=== PATIENT | male | born 1965 | race Two or more races ===

== ENCOUNTER 2019-04-16 14:47 | Inpatient (IN) | payer MEDICARE ==
[~2019-04-16] VITALS: Ht 162.6 cm; Wt 74.1 kg
--- NOTE | 2019-04-16 15:30 | NUR ---
PT ARRIVED TO FLOOR VIA WHEELCHAIR WITH REGISTRATION STAFF AND FAMILY. VSS AND WNL. PT SON HERE TO HELP TRANSLATE SIMPLE QUESTIONS. PT UNDERSTANDS VERY LITTLE INDONESIAN. CALL LIGHT WITHIN REACH. WILL CONT TO FOLLOW POC
[2019-04-16 15:33] VITALS: BP 127/67; BMI 27.8
[2019-04-16] MEDS ORDERED: LIPITOR40 MG PO (15:48)
[2019-04-16] MEDS ORDERED: HYDROXYCHLOROQUINE PO (15:50)
[2019-04-16] MEDS ORDERED: COREG12.5 MG PO (15:51)
[2019-04-16] MEDS ORDERED: METHOTREXATE2.5 MG PO (15:52)
[2019-04-16] MEDS ORDERED: CARDURA4 MG PO (15:53)
[2019-04-16] MEDS ORDERED: LASIX80 MG PO (15:53)
[2019-04-16] MEDS ORDERED: ZOFRAN4 MG PO (15:54)
[2019-04-16] MEDS ORDERED: NORVASC5 MG PO (15:54)
[2019-04-16] MEDS ORDERED: BAYER CHEWABLE81 MG PO (15:55)
[2019-04-16] MEDS ORDERED: FOLIC ACID1 MG PO (15:55)
[2019-04-16] MEDS ORDERED: LANTUS SOL100 UNIT/1 SC (15:56)
[2019-04-16] MEDS ORDERED: PROCRIT/EP20000 UNIT SC (15:58)
--- NOTE | 2019-04-16 16:00 | NUR ---
20G PIV INSERTED X1 ATTEMPT TO RIGHT AC. PT TOLERATED WELL.
--- NOTE | 2019-04-16 17:28 | NUR ---
ASSISTED PT WITH PD. PT TOLERATED WELL.
--- NOTE | 2019-04-16 18:29 | NUR ---
PT RESTING IN BED, FAMILY AT BEDSIDE. CALL LIGHT WITHIN REACH. WILL CONT TO FOLLOW POC
[2019-04-16 20:16] VITALS: BP 127/67
--- NOTE | 2019-04-16 21:00 | NUR ---
EVENING ROUNDS COMPLETED. VSS, AAOX3, NO S/S OF RESP DISTRESS. PT ABLE TO UNDERSTAND SIMPLE SPOKEN HEBREW, STATES HE DOES NOT NEED ANY MANAGER TRANSIT. SISTER @ BEDSIDE. STARTED PT PERITONEAL DIALYSIS. PT C/O OF ABD BEING FULL A RESULT OF DIALYSIS FLUID, ALTHOUGH C/O OF FEELING HUNGRY. PT DENIES ANY PAIN AT THIS TIME. WILL CPOC. CL WITHIN REACH, BED IN LOW, SR UP X2.
--- NOTE | 2019-04-16 21:15 | NUR ---
TURKEY SANDWICH PROVIDED FOR PT. PT VOICED THANKS. PT ALSO STATES HE FEELS VOLUME PD FLUID IS TOO MUCH BECAUSE IT MAKE HIS STOMACH HURTS AND MAKES HIM UNCOMFORTABLE. WILL RELATE THIS FINDINGS TO INCOMING NURSE AND PROVIDER.
[2019-04-16 23:13] VITALS: BP 128/57
[2019-04-17 06:03] LABS: BASOPHILS 0 % (0-2); EOSINOPHILS 0.3 % (0-7); HEMATOCRIT 26.9 % (42.0-54.0); HEMOGLOBIN 9.2 g/dL (13.5-17.5); IMMATURE GRANULOCYTES 0.8 % (0-5); MCH 32.9 pg (26.0-34.0); MCHC 34.2 g/dL (31.0-37.0); MCV 96.1 fL (80.0-100.0); MEAN PLATELET VOLUME 10.6 fL (7.4-10.4); MONOCYTES 5.7 % (2-11); NEUTROPHILS 86.2 % (40-80); PLATELET COUNT 98 10x3/uL (130-400); WBC 10.1 10x3/uL (4.8-10.8)
[2019-04-17 06:32] LABS: ANION GAP 10.9 mmol/L (8-16); CALCIUM 7.2 mg/dL (8.5-10.1); CARBON DIOXIDE 26.1 mmol/L (21.0-32.0)
--- NOTE | 2019-04-17 07:42 | NUR ---
SPOKE WITH EDGARD ORR ABOUT PD 2000ML BEING TOO MUCH ON PT. SHE STATES WE CAN DO 1500ML BUT THERE WILL BE ONE MORE EXCHANGE. I VERBALIZED UNDERSTANDING.
[2019-04-17 07:44] LABS: PLATELET ESTIMATE DECREASED
[2019-04-17 08:00] VITALS: BP 120/52
--- NOTE | 2019-04-17 09:35 | NUR ---
ONLY DRAINED 100ML. SPOKE WITH EDGARD ORR AND SHE STATES TO NOT FILL PT. LET HIM REST AND THEN DRAIN AND FILL AT 1100. SHE ALSO STATES TO GET AN ABDOMEN XR AND TO ORDER TYLENOL 650MG Q4HP. I VERBALIZED UNDERSTANDING.
--- NOTE | 2019-04-17 10:00 | NUR ---
PT MOVED AROUND MORE AND ENEDED UP GETTING OUT 1100ML INSSTEAD OF JUST 100ML. NOTIFIED EDGARD ORR. SHE VERBALIZED UNDERSTANDING.
[2019-04-17 12:00] VITALS: BP 106/45
[2019-04-17 12:59] VITALS: Ht 162.6 cm; Wt 74.1 kg
--- NOTE | 2019-04-17 13:57 | NUR ---
PT C/O CONSTIPATION AND ABDOMINAL XR SHOWED CONSTIPATION. CALLED AND SPOKE WITH EDGARD ORR AND SHE STATES TO ORDER ONE TIME DOSE OF LACTULOSE.
[2019-04-17 16:11] VITALS: BP 103/46
--- NOTE | 2019-04-17 19:38 | NUR ---
REPORT RECIEVED AND ROUNDING COMPLETE. PATIENT SITTING UP IN CHAIR. AT BED SIDE. PATIENT STATES THAT HE IS TOO FULL AND REQUESTED TO ONLY HAVE 500 FILL IN HIS PD TONIGHT. CALLED EDGARD ORR AND SHE SAID 1000. INFORMED PATIENT AND HIS AND THEY ARE OKAY WITH TRYING 1,000 TONIGHT. PATIENT HAS A RIGHT HAND PIV THAT IS SALINE LOCKED, NO S/SX OF INFILTRATION OR INFECTION. PATIENT IS A LEFT ARM RESERVE, SIGNS ARE POSTED. PATIENT STATES HE HAS NO NEEDS AT THIS TIME. CALL LIGHT WITHIN REACH.
[2019-04-17 20:04] VITALS: BP 127/59
[2019-04-17 23:23] VITALS: BP 113/59
[2019-04-18 04:00] VITALS: BP 118/70
[2019-04-18 06:16] LABS: CALCIUM 7.8 mg/dL (8.5-10.1); CARBON DIOXIDE 28.1 mmol/L (21.0-32.0); CREATININE - SERUM 5.5 mg/dL (0.6-1.3); POTASSIUM - SERUM 4.1 mmol/L (3.5-5.1)
[2019-04-18 06:49] LABS: BASOPHILS 0.1 % (0-2); EOSINOPHILS 0 % (0-7); HEMATOCRIT 26.6 % (42.0-54.0); HEMOGLOBIN 9.4 g/dL (13.5-17.5); IMMATURE GRANULOCYTES 1.2 % (0-5); LYMPHOCYTES 10.6 % (15-50); MCH 33.6 pg (26.0-34.0); MCHC 35.3 g/dL (31.0-37.0); MEAN PLATELET VOLUME 11.9 fL (7.4-10.4); MONOCYTES 4.7 % (2-11); NEUTROPHILS 83.4 % (40-80); PLATELET COUNT 98 10x3/uL (130-400); WBC 10.8 10x3/uL (4.8-10.8)
[2019-04-18 08:00] VITALS: BP 100/58
--- NOTE | 2019-04-18 11:08 | NUR ---
INITIATE PD TREATMENT. HEPARIN ADDED TO PD FLUID ORDERED. FSBS 165. REFUSE INSULIN COVERAGE. DENIES ANY NEEDS AT THIS TIME. CONTINUE PLAN OF CARE AND SAFETY PRECAUTIONS.
[2019-04-18 12:00] VITALS: BP 122/63
[2019-04-18 16:00] VITALS: BP 130/58
--- NOTE | 2019-04-18 17:42 | NUR ---
ALERT AND ORIENTED X4. SITTING UP IN BED. FAMILY AT BEDSIDE. DENIES ANY NEEDS AT THIS TIME. CONTINUE PLAN OF CARE AND SAFETY PRECAUTIONS.
--- NOTE | 2019-04-18 19:33 | NUR ---
PT SITTING UP IN BED ALERT AND ORIENTED X4. RR EVEN AND UNLABORED. AND FAMILY AT BEDSIDE. WILL CONTINUE TO MONITOR.
[2019-04-18 20:23] VITALS: BP 120/54
--- NOTE | 2019-04-18 21:30 | NUR ---
PT OUTPUT FOR PD DIALYSIS IS 1,000ML INPUT-1,000ML. 1,000UNITS OF HEPARIN INJECTED INTO 1500ML BAG. STERILE TECHNIQUE USED PD CATH CAP REPLACED. NO S/S OF DISTRESS AT THIS TIME. AT BEDSIDE. BED LOW CALL LIGHT WITHIN REACH WILL CONTINUE TO MONITOR.
[2019-04-19 00:11] VITALS: BP 120/44
--- NOTE | 2019-04-19 00:48 | NUR ---
I have reviewed this patient and I concur with the Shift Assessment completed by the Licensed Practical Nurse today this shift.
--- NOTE | 2019-04-19 03:19 | NUR ---
PT RESTING IN BED WITH EYES CLOSED. RR EVEN AND UNLABORED. NO S/S OF DISTRESS AT THIS TIME. BED LOW CALL LIGHT WITHIN REACH. WILL CONTINUE TO MONTITOR.
[2019-04-19 04:24] VITALS: BP 108/42
--- NOTE | 2019-04-19 07:43 | NUR ---
RECIEVED REPORT. ALERT AND ORIENTED X4. RESTING IN BED. SPOUSE AT BEDSIDE. DENIES ANY NEEDS AT THIS TIME. CONTINUE PLAN OF CARE AND SAFETY PRECAUTIONS.
[2019-04-19 07:48] LABS: CALCIUM 7.7 mg/dL (8.5-10.1); CARBON DIOXIDE 27.8 mmol/L (21.0-32.0); CREATININE - SERUM 5.7 mg/dL (0.6-1.3); POTASSIUM - SERUM 3.8 mmol/L (3.5-5.1)
[2019-04-19 07:53] VITALS: BP 123/61
[2019-04-19 07:58] LABS: BASOPHILS 0 % (0-2); HEMATOCRIT 28.5 % (42.0-54.0); HEMOGLOBIN 9.9 g/dL (13.5-17.5); IMMATURE GRANULOCYTES 0.6 % (0-5); LYMPHOCYTES 7.6 % (15-50); MCH 33.1 pg (26.0-34.0); MCHC 34.7 g/dL (31.0-37.0); MCV 95.3 fL (80.0-100.0); MEAN PLATELET VOLUME 12.1 fL (7.4-10.4); MONOCYTES 2.2 % (2-11); NEUTROPHILS 88.6 % (40-80); PLATELET COUNT 99 10x3/uL (130-400); RBC 2.99 10x6/uL (4.20-6.10)
[2019-04-19 09:52] LABS: PLATELET ESTIMATE DECREASED
[2019-04-19 09:55] LABS: ANISOCYTOSIS OCC; ROULEAUX OCC
--- NOTE | 2019-04-19 10:09 | NUR ---
ALERT AND ORIENTED X4. AMBULATE TO STANDING SCALE FOR ACCURATE WEIGHT. STANDING SCALE 163lbs. DOCUMENT ACCURATE WEIGHT. SPOUSE AT BEDSIDE. DENIES ANY NEEDS AT THIS TIME. DENIES PAIN OR SOB. CONTINUE PLAN OF CARE AND SAFETY PRECAUTIONS.
[2019-04-19 11:03] VITALS: BP 118/56
--- NOTE | 2019-04-19 11:49 | NUR ---
ALERT AND ORIENTED X4. SITTING UP IN BED. UNABLE TO INITIATE PD TREATMENT DUE TO OUT OF CLAMPS. NOTIFY CENTRAL SUPPLY FOR MORE PD CLAMPS. CURRENTLY CENTRAL SUPPLY OUT OF CLAMPS. NOTIFY KIRBY FINN.
--- NOTE | 2019-04-19 13:12 | MORECARE ---
CASE MANAGEMENT DISCHARGE SUMMARY PATIENT: DAMIAN MILLER UNIT: [id number] ADM DATE: 04/16/19 AGE: 53 : 67 SEX: M ROOM/BED: D.9744 AUTHOR: ERI,DOC PHYSICIAN: REFERRING PHYSICIAN: JU MCRAE MD DATE OF SERVICE: 04/19/19 Discharge Plan Patient Name: DAMIAN MILLER Facility: [facility]:[place] : 1965 Planned Disposition: Home Anticipated Discharge Date: 04/20/19 Discharge Date: Expected LOS: 4 Initial Reviewer: [id number] Initial Review Date: 04/20/2019 Generated: 04/19/19 2:12 pm Comments DCP- Discharge Planning Updated by [email or web address]: Ángel Parry on 04/19/19 12:[address] Patient Name: DAMIAN MILLER Admission Status: Urgent Accout number: [id number] Admission Date: 04-16-2019 : 1965 Admission Diagnosis: Attending: JU MCRAE Current LOS: 3 Anticipated DC Date: 04-20-2019 Planned Disposition: Home Primary Insurance: MEDICARE A & B Discharge Planning Comments: CM RECEIVED ORDER REGARDING POSSIBLE NEED OF HOME IV ANTIBIOTICS. CM REVIEWED CHART WHICH INDCATES PLANS FOR DISCHARGE TOMORROW WITH CONVERSION TO PO ANTIBIOTICS. CM MET WITH PT AND SPOUSE IN ROOM TO DISCUSS DISCHARGE PLANNING AND NEEDS. DAMIAN MILLER provided verbal consent to discuss current and ongoing needs with/in the presence of: SPOUSE, LESTER. PT REPORTS LIVING AT HOME INDEPENDENTLY WITH HIS . PT HAS HOME PERITONEAL DIALYSIS EQUIPMENT AND SUPPLIES FROM [employer] IN [place]. PT HAS NO OUTSIDE SERVICES ASSISTING IN THE HOME. CM DISCUSSED AVAILABILITY OF HOME HEALTH, REHAB SERVICES AND MEDICAL EQUIPMENT. PT DENIES DISCHARGE NEEDS, REPORTS HIS WILL PICK HIM UP FOR DISCHARGE HOME. IMPORTANT MESSAGE FROM MEDICARE PROVIDED AND EXPLAINED (PRINTED IN ROMANIAN PT READS ROMANIAN). PT PLANS TO DISCHARGE HOME WITH SPOUSE, HAS NOT ANTICIPATED NEEDS. FAMILY TO TRANSPORT HOME. CM TO FOLLOW AND ASSIST IF NEEDED. Rock Climbing Team Member: Ángel Parry DCPIA - Discharge Planning Initial Assessment Updated by [id number]: Ángel Parry on 04/19/19 1:07 pm * Is the patient Alert and Oriented? Yes * How many steps to enter\exit or inside your home? NONE * PCP [facility] [place] * Pharmacy [facility] IN [place] * Preadmission Environment Home with Family * ADLs Independent * Equipment Other * Other Equipment HOME PERITONEAL DIALYSIS EQUIPMENT * List name and contact numbers for known caregivers / representatives who currently or will assist patient after discharge: LESTER MILLER, SPOUSE, * Verbal permission to speak to the caregivers and representatives has been obtained from the patient. Yes * Community resources currently utilized Other * Please name any agencies selected above. HOME DIALYSIS SUPPLIES FROM [employer] IN [place]; PD NIGHTLY FOR 8 HOURS. * Additional services required to return to the preadmission environment? No * Can the patient safely return to the preadmission environment? Yes * Has this patient been hospitalized within the prior 30 days at any hospital? No Coverage Notice Reviewer: [id number] Larry Parry Notice Issued Date-Time: 04/19/2019 13:00 Notice Type: IM Discharge Notice Notice Delivered To: Patient Relationship to Patient: Interlocking Pavement Installer Name: Delivery Method: HAND - Hand Delivered Stephanie Days: Prior Verbal Notification: Recipient Understood Notice: Yes Recipient Signature: Yes Med Rec Note Co-signed by Attending: Coverage Notice Comment: Patient Name: DAMIAN MILLER Page [phone] at 1312 All edits/amendments must be made on the electronic document DICTATION DATE: 04/19/19 1312 MH TEACHER: MILAGROS 04/19/19 1312 RPT#: [id number] DC DATE: STATUS: ADM IN [facility] [address] [place] [address] END OF REPORT
--- NOTE | 2019-04-19 14:04 | NUR ---
CLAMPS FOR PD OBTAINED. INITIATE PD.
[2019-04-19 15:37] VITALS: BP 109/60
--- NOTE | 2019-04-19 17:04 | NUR ---
ALERT AND ORIENTED X4. SITTING UP IN CHAIR. INITIATE PD TREATMENT ORDERED. SPOUSE AT BEDSIDE. DENIES ANY NEEDS AT THIS TIME. CONTINUE PLAN OF CARE AND SAFETY PRECAUTIONS.
--- NOTE | 2019-04-19 19:07 | NUR ---
AWAKE AND UP IN CHAIR SKIN WARM AND DRY PT BREATHING SHALLOW CAN NOT ASCULATE LUNGS WELL DENIES NEEDS AT THJIS TIME
[2019-04-19 20:00] VITALS: BP 112/42
[2019-04-20] VITALS: BP 105/57
--- NOTE | 2019-04-20 04:50 | NUR ---
I have reviewed this patient and I concur with the Shift Assessment completed by the Licensed Practical Nurse today this shift.
[2019-04-20 05:48] LABS: BASOPHILS 0.1 % (0-2); EOSINOPHILS 0 % (0-7); HEMATOCRIT 27.7 % (42.0-54.0); HEMOGLOBIN 9.5 g/dL (13.5-17.5); IMMATURE GRANULOCYTES 0.4 % (0-5); LYMPHOCYTES 8.2 % (15-50); MCH 33.3 pg (26.0-34.0); MCHC 34.3 g/dL (31.0-37.0); MCV 97.2 fL (80.0-100.0); MEAN PLATELET VOLUME 11.3 fL (7.4-10.4); MONOCYTES 5.3 % (2-11); PLATELET COUNT 105 10x3/uL (130-400); RBC 2.85 10x6/uL (4.20-6.10); RDW 14.9 % (11.5-14.5)
[2019-04-20 06:46] LABS: ANION GAP 11.1 mmol/L (8-16); CALCIUM 7.5 mg/dL (8.5-10.1); CARBON DIOXIDE 28.4 mmol/L (21.0-32.0); CREATININE - SERUM 5.8 mg/dL (0.6-1.3); POTASSIUM - SERUM 3.5 mmol/L (3.5-5.1)
[2019-04-20 08:00] VITALS: BP 99/62
--- NOTE | 2019-04-20 08:18 | NUR ---
AM MEDS GIVEN AT THIS TIME. PT UP TO SIDE OF BED EATING BREAKFAST. BLOOD SUGAR OF 208, 44UNITS OF LANTUS GIVEN AT THIS TIME. PT A/O X4, RESP EVEN AND NONLABORED ON RA. RT AC IV SL. PT DENIES ANY PAIN AND NEEDS AT THIS TIME. CALL LIGHT IN REACH, NAD NOTED,W ILL CONTINUE PLAN OF CARE.
[2019-04-20] MEDS ORDERED: OMNICEF300 MG PO (11:20)
[2019-04-20] MEDS ORDERED: DOXYCYCLINE HY100 M2 PO (11:21)
--- NOTE | 2019-04-20 11:25 | NUR ---
PD EXCHANGED STARTED AT THIS TIME. ALSO GAVE 8UNITS OF INSULIN FOR BLOOD SUGAR OF 208.
[2019-04-20 12:24] VITALS: BP 117/55
--- NOTE | 2019-04-20 13:59 | NUR ---
PROVIDED VERBAL AND WRITTEN DISCHARGE TEACHING TO PT AND SPOUSE, BOTH VERBALIZED UNDERSTANDING REGARDING TEACHING. D/C RT FA IV WITH CATHETER TIP INTACT. PT LEFT UNIT VIA WHEELCHAIR, WITH ALL BELONGINGS, ACCOMPANIED BY APOUSE. NAD NOTED.
--- NOTE | 2019-04-21 07:42 | MORECARE ---
CASE MANAGEMENT DISCHARGE SUMMARY PATIENT: DAMIAN MILLER UNIT: [id number] ADM DATE: 04/16/19 AGE: 53 : 67 SEX: M ROOM/BED: D.4084 AUTHOR: ERI,DOC PHYSICIAN: REFERRING PHYSICIAN: JU MCRAE MD DATE OF SERVICE: 04/21/19 Discharge Plan Patient Name: DAMIAN MILLER Facility: [facility]:[place] : 1965 Planned Disposition: Home Anticipated Discharge Date: 04/20/19 Discharge Date: 04/20/2019 Expected LOS: 4 Initial Reviewer: [email or web address] Initial Review Date: 04/20/2019 Generated: 04/21/19 8:42 am DCP- Discharge Planning Updated by [email or web address]: Ángel Parry on 04/19/19 12:[address] Patient Name: DAMIAN MILLER Admission Status: Urgent Accout number: [id number] Admission Date: 04-16-2019 : 1965 Admission Diagnosis: Attending: JU MCRAE Current LOS: 3 Anticipated DC Date: 04-20-2019 Planned Disposition: Home Primary Insurance: MEDICARE A & B Discharge Planning Comments: CM RECEIVED ORDER REGARDING POSSIBLE NEED OF HOME IV ANTIBIOTICS. CM REVIEWED CHART WHICH INDCATES PLANS FOR DISCHARGE TOMORROW WITH CONVERSION TO PO ANTIBIOTICS. CM MET WITH PT AND SPOUSE IN ROOM TO DISCUSS DISCHARGE PLANNING AND NEEDS. DAMIAN MILLER provided verbal consent to discuss current and ongoing needs with/in the presence of: SPOUSE, LESTER. PT REPORTS LIVING AT HOME INDEPENDENTLY WITH HIS . PT HAS HOME PERITONEAL DIALYSIS EQUIPMENT AND SUPPLIES FROM [employer] IN [place]. PT HAS NO OUTSIDE SERVICES ASSISTING IN THE HOME. CM DISCUSSED AVAILABILITY OF HOME HEALTH, REHAB SERVICES AND MEDICAL EQUIPMENT. PT DENIES DISCHARGE NEEDS, REPORTS HIS WILL PICK HIM UP FOR DISCHARGE HOME. IMPORTANT MESSAGE FROM MEDICARE PROVIDED AND EXPLAINED (PRINTED IN POLISH PT READS POLISH). PT PLANS TO DISCHARGE HOME WITH SPOUSE, HAS NOT ANTICIPATED NEEDS. FAMILY TO TRANSPORT HOME. CM TO FOLLOW AND ASSIST IF NEEDED. Stamper Blocker: Ángel Parry DCPIA - Discharge Planning Initial Assessment Updated by [id number]: Ángel Parry on 04/19/19 1:07 pm * Is the patient Alert and Oriented? Yes * How many steps to enter\exit or inside your home? NONE * PCP [facility] * Pharmacy [facility] IN [place] * Preadmission Environment Home with Family * ADLs Independent * Equipment Other * Other Equipment HOME PERITONEAL DIALYSIS EQUIPMENT * List name and contact numbers for known caregivers / representatives who currently or will assist patient after discharge: LESTER MILLER, SPOUSE, * Verbal permission to speak to the caregivers and representatives has been obtained from the patient. Yes * Community resources currently utilized Other * Please name any agencies selected above. HOME DIALYSIS SUPPLIES FROM [employer] IN [place]; PD NIGHTLY FOR 8 HOURS. * Additional services required to return to the preadmission environment? No * Can the patient safely return to the preadmission environment? Yes * Has this patient been hospitalized within the prior 30 days at any hospital? No Coverage Notice Reviewer: [id number] Larry Parry Notice Issued Date-Time: 04/19/2019 13:00 Notice Type: IM Discharge Notice Notice Delivered To: Patient Relationship to Patient: Room Service Waiter Name: Delivery Method: HAND - Hand Delivered Stephanie Days: Prior Verbal Notification: Recipient Understood Notice: Yes Recipient Signature: Yes Med Rec Note Co-signed by Attending: Coverage Notice Comment: Last DP export: 04/19/19 12:12 p Patient Name: DAMIAN MILLER Page [phone] at 0742 All edits/amendments must be made on the electronic document DICTATION DATE: 04/21/19741 CLERK SPECIALIST: MILAGROS 04/21/1941 RPT#: [id number] DC DATE:04/20/19 STATUS: DIS IN [facility] [address] [facility] [place] [address] END OF REPORT
== END 2019-04-20 14:01 | disposition home or self-care (01) | DRG 193 ==
LOC: D.M2 14:47
PROVIDERS: ADMIT Internal Medicine; ATTEND Internal Medicine
DX: J18.1 Lobar pneumonia, unspecified organism (principal); N18.6 End stage renal disease; I12.0 Hypertensive chronic kidney disease with stage 5 chronic kidney disease or end stage renal disease; M06.9 Rheumatoid arthritis, unspecified; I25.10 Atherosclerotic heart disease of native coronary artery without angina pectoris; E11.22 Type 2 diabetes mellitus with diabetic chronic kidney disease; D63.1 Anemia in chronic kidney disease; E78.5 Hyperlipidemia, unspecified